=== PATIENT | male | born 1995 | race Caucasian/White ===

== ENCOUNTER 2025-03-18 13:28 | Emergency (ER) | payer SELFPAY ==
[2025-03-18 13:29] VITALS: BP 113/75; PULSE 66; RESP 16; TEMP 36.1; O2SAT 100; BMI 16.8
--- NOTE | 2025-03-18 13:37 | EDS_ITS ---
HPI HPI - GI History of Present Illness Chief Complaint: GI Bleed Informant: patient Nausea/Vomiting/Emesis GI Symptom: Positive for Nausea and Vomiting Onset: Today Quality: Positive for Nonbilious; Negative for Blood streaks, Coffee ground or Hematemesis Diarrhea/Melena/Hematochezia GI Symptom: Positive for Hematochezia Stool Quality: Positive for Maroon (Dark red blood) Associated Symptoms Associated Symptoms: Positive for Frequency; Negative for Dysuria or Hematuria Narrative Narrative: Patient presents with rectal bleeding that began today. Patient states it began approximately 1 hour prior to arrival. Patient states he has had 2 episodes of rectal bleeding. Patient states that it was dark red rectal bleeding. Patient admits to some nausea and vomiting. Patient denies any hematemesis or coffee-ground emesis. Patient admits to some urinary frequency but denies any dysuria or hematuria. Patient denies any abdominal pain. Patient denies any fevers or chills. PFSH PFS Medical History (Updated 03/18/25 @ 15:[address] Don Emerson DO) Irritable bowel syndrome (IBS) Medical History no medical history Home Medications ?Medication ?Instructions ?Recorded ?Last Taken ?Type No Known/Unobtainable [No Known 6 Unknown History Home Medications] amoxicillin 875 mg-potassium 875 mg PO Q12H #20 TABLET S 03/18/25 Unknown Rx clavulanate 125 mg tablet Allergy/AdvReac Type Severity Reaction Status Date / Time No Known Allergies Allergy Verified 03/18/25 13:29 Family History no significant family his Surgical History (Updated 03/18/25 @ 13:[address] Don Emerson DO) S/P excision of varicocele Surgical History no surgical history Social History Smoking Status: Current every day smoker tobacco type: e-cigarettes ROS ROS ED Constitutional Constitutional ED: Denies chills or fever(s) Eyes Eyes: Denies blurry vision or change in vision ENT ENT ED: Reports rhinorrhea; Denies sore throat Cardiovascular Cardiovascular: Denies chest pain or palpitations Respiratory/Chest Respiratory/Chest: Denies cough or dyspnea Gastrointestinal Gastrointestinal: Reports diarrhea, nausea and vomiting; Denies abdominal pain Genitourinary Genitourinary ED: Denies dysuria or hematuria Musculoskeletal Musculoskeletal: Reports neck pain; Denies back pain Integumentary Denies abscess or rash Neurologic Neurologic: Denies headache(s) or weakness Allergic/Immunologic Allergic/Immunologic ED: Denies mouth swelling or urticaria EXAM Physical Exam Const Vital Signs: 03/18/25 13:29 03/18/25 14:09 Temperature 96.9 F L Temperature Source Temporal Pulse Rate 66 Pulse Rate [Lying] 55 L Pulse Rate [Sitting (for 1 minute prior to obtaining)] 53 L Pulse Rate [Standing (for 1 minute prior to obtaining)] 64 Respiratory Rate 16 Blood Pressure 113/75 Blood Pressure [Lying] 110/60 Blood Pressure [Sitting (for 1 minute prior to obtaining)] 109/64 Blood Pressure [Standing (for 1 minute prior to obtaining)] 112/71 Blood Pressure Mean 87 Blood Pressure Mean [Lying] 76 Blood Pressure Mean [Sitting (for 1 minute prior to obtaining)] 79 Blood Pressure Mean [Standing (for 1 minute prior to obtaining)] 84 Pulse Ox 100 Positive well nourished and well developed General Appearance ED: well developed and NAD HEENT Reports moist mucous membranes Neck supple and no JVD Resp normal respiratory effort and clear to auscultation bilaterally Cardio regular rate and regular rhythm GI non-tender and non-distended Palpation: soft Extremity full ROM Neuro CN's II-XII intact bilaterally, moves all extremities and no sensory deficits noted Sensorium / Orientation: alert Motor Exam: strength 5/5 throughout Psych mental status grossly normal MDM MDM MDM Narrative Medical decision making narrative: Differential diagnosis includes diverticulitis, ulcerative colitis, irritable bowel syndrome, colitis, anemia, electrolyte abnormality, urinary tract infection, and internal hemorrhoid. CBC will be obtained to assess for leukocytosis and anemia. Basic metabolic profile will be obtained to assess for electrolyte abnormality and renal function. Urinalysis will be obtained to assess for urinary tract infection and hematuria. CT scan of the abdomen and pelvis will be obtained to assess for diverticulitis, colitis, and obstruction. Orthostatic vital signs will be obtained to assess for hypovolemia. Lab Data Attestation: I reviewed the patient's lab results. Lab results narrative: CBC was reviewed and was within normal limits. Basic metabolic profile was reviewed and was within normal limits. Urinalysis was reviewed. There is no evidence of urinary tract infection or hematuria. Labs: Laboratory Results - last 24 hr 03/18/25 03/18/25 13:55 14:05 WBC 10.2 RBC 4.89 Hgb 14.8 Hct 43.3 MCV 88.5 MCH 30.3 MCHC 34.2 RDW Std Deviation 40.2 RDW Coeff of Suresh 12.4 Plt Count 194 MPV 9.9 Immature Gran % (Auto) 0.300 Neut % (Auto) 80.9 H Lymph % (Auto) 9.6 L Terrell % (Auto) 8.3 Eos % (Auto) 0.4 Baso % (Auto) 0.5 Absolute Neuts (auto) 8.3 H Absolute Lymphs (auto) 0.98 Nucleated RBC % 0 Sodium 140 Potassium 4.0 Chloride 104 Carbon Dioxide 24.4 Anion Gap 12 BUN 12 Creatinine 0.78 Estim Creat Clear Calc 108.51 Est GFR (MDRD) Non-Af 121 BUN/Creatinine Ratio 15.5 Glucose 96 Calcium 9.4 Urine Color Yellow Urine Clarity Cloudy Urine pH 6.5 Ur Specific [place] 1.015 Urine Protein 15 H Urine Glucose (UA) Normal Urine Ketones 15 H Urine Occult Blood Negative Urine Nitrite Negative Urine Bilirubin Negative Urine Urobilinogen Normal Ur Leukocyte Esterase Negative Radiography Diagnostic Testing: Clinical Impression(s) from Imaging Studies Abdomen/Pelvis CT 03/18/25 14:22 IMPRESSION: Mild hepatomegaly. Questionable mild colitis of the rectosigmoid colon. Reading Location: [facility] CT scan of the abdomen and pelvis was obtained. There is mild colitis of the rectosigmoid colon. There is no evidence of obstruction or perforation. This was interpreted by the radiologist and was also independently reviewed by myself. Treatment and Re-Evaluation :: Patient was given IV fluids. Orthostatic vital signs were reviewed and were within normal limits. Patient was advised of his findings. Patient was given a dose of Augmentin here. Patient was given a prescription for Augmentin. Patient was instructed to follow-up with his primary care physician in 5 to 7 days. Patient was instructed to return if worse in any way. Patient understood and was agreeable with the plan. All questions were answered. Discharge Plan Triage Chief Complaint: GI Bleed ED Provider: Don Emerson Dx/Rx/DC Orders Clinical Impression: Colitis, Irritable bowel syndrome (IBS), Lower gastrointestinal bleeding Instructions: ED Understanding Colitis Prescriptions: New amoxicillin-pot clavulanate 875-125 mg tablet 875 mg PO Q12H Qty: 20 0RF No Action No Known Home Medications Primary Care Provider: Heather Arellano Referrals: Heather Arellano DO [Primary Care Provider] - 5-7 Days Care Physician,No Primary [Non-Staff] - Print Language: [place] Disposition Disposition: Home, Self Care
[2025-03-18 14:04] LABS: Hematocrit 43.3 % (40-54); Hemoglobin 14.8 g/dL (13.0-16.5); Immature Granulocytes Count 0.030 X10^3/uL (0.0-0.0); Mean Corp Hgb Conc 34.2 g/dL (32-36); Mean Corpuscular Volume 88.5 fL (80-94); Mean Platelet Vol. 9.9 fl (6.2-12.0); NRBC Flagged by Analyzer 0 % (0-5); Platelet Count 194 K/mm3 (150-450); RBC Distribution Width CV 12.4 % (11.6-14.6); RBC Distribution Width SD 40.2 fl (35.1-43.9); Red Blood Count 4.89 M/mm3 (4.6-6.2); White Blood Count 10.2 K/mm3 (4.4-11.0)
[2025-03-18 14:09] VITALS: BP 109/64; BP 110/60; BP 112/71; PULSE 53; PULSE 55; PULSE 64
[2025-03-18] MEDS: 0.9% Normal Saline (1000mL) 1,000 ML 999 ML IV (14:09)
[2025-03-18 14:14] LABS: Mucous, Urine 0 SEEN /hpf (<or=2+)
--- NOTE | 2025-03-18 14:22 | CT_ITS ---
PROCEDURE: ABDOMEN/PELVIS W IV CONT ONLY 03/18/2025 REASON FOR EXAM: RECTAL BLEEDING TECHNIQUE: ABDOMEN/PELVIS W IV CONT ONLY Coronal and Sagittal reconstruction series were provided. CONTRAST: None One or more dose reduction techniques were used (e.g., Automated exposure control, adjustment of the mA and/or kV according to patient size, use of iterative reconstruction technique. RADIATION DOSE SUMMARY: CTDlvol: 9.7 mGy DLP: 266.07 mGycm COMPARISON: None FINDINGS: Lung bases: The lung bases are clear. Liver: Mild hepatomegaly. Gallbladder: Unremarkable Spleen: Normal size. Pancreas: Normal size without evidence of mass surrounding inflammation or ductal dilation. Adrenals: Unremarkable Kidneys: Unremarkable Bladder: Unremarkable Bowel: Findings suggestive of possible colitis of the rectosigmoid colon. Appendix: Unremarkable Lymph nodes: Unremarkable. Vasculature: The abdominal aorta and IVC are normal. Peritoneum / Retroperitoneum: Unremarkable Bones: Unremarkable CT/Abdomen/Pelvis W IV Cont ONLY IMPRESSION: Mild hepatomegaly. Questionable mild colitis of the rectosigmoid colon. Reading Location: [id number]
[2025-03-18 14:26] LABS: Anion Gap 12 (5-15); BUN 12 mg/dL (4-19); BUN/Creat Ratio 15.5 RATIO (10-20); Calcium,Total 9.4 mg/dL (7.6-11.0); Carbon Dioxide 24.4 mmol/L (21.0-32.0); Chloride 104 mmol/L (98-108); Estimated Creatinine Clearance 108.51 ml/min (50-250); Glucose 96 mg/dL (70-99); Potassium 4.0 mmol/L (3.3-5.1)
[2025-03-18 14:45] LABS: Color, Urine Yellow (Yellow); Glucose, Dipstick Normal (Normal); Ketone-Dipstick 15 mg/dl (Negative); Leukocyte Esterase-Dipstick Negative /ul (Negative); Nitrite-Dipstick Negative (Negative); Occult Blood-Urine Negative /ul (Negative); Protein-Dipstick 15 mg/dl (Negative); Specific Gravity, Urine 1.015 (1.002-1.030); Urine Bilirubin Dipstick Negative (Negative)
[2025-03-18 15:29] VITALS: BP 114/64; PULSE 56; O2SAT 100
[2025-03-18 15:35] VITALS: BP 114/64; PULSE 56; RESP 16; TEMP 36.1; O2SAT 100
[2025-03-18 16:13] LABS: Red Blood Cells-Urine 0-5 SEEN /hpf (0-5); Squamous Epithelial Cells - UA 0-5 SEEN /hpf (0-5)
== END 2025-03-18 15:38 | disposition home or self-care (01) ==
PROVIDERS: Emergency Provider Emergency Medicine; PCP Family Medicine; Visit Provider Emergency Medicine
DX: K58.0 Irritable bowel syndrome with diarrhea (principal); R35.0 Frequency of micturition; F17.290 Nicotine dependence, other tobacco product, uncomplicated; K92.2 Gastrointestinal hemorrhage, unspecified
CPT/HCPCS: 74177; 80048; 81001; 85025; 96360; 99284; Q9967; A4216